=== PATIENT | female | born 1940 | race Caucasian/White ===

== ENCOUNTER 2020-04-27 15:02 | Emergency (ER) | payer OTHER ==
[~2020-04-27] VITALS: Ht 177.8 cm; Wt 86.2 kg
[~2020-04-27 15:02] MED LIST: ASA81 MG; DILANTIN100 MG; GLUCOTROL10 MG; LEVOXYL200 MCG
[2020-04-27] MEDS ORDERED: LIPITOR20 MG (15:16)
== END 2020-04-28 14:42 | disposition home or self-care (01) ==
LOC: ER 15:02
DX: R07.89 Other chest pain (principal); I10 Essential (primary) hypertension

== ENCOUNTER → 2022-01-06 | Emergency (ER) | payer OTHER ==
[~2022-01-06] VITALS: Ht 177.8 cm; Wt 84.8 kg
[~2022-01-06] MED LIST changes: +LIPITOR20 MG; +PLAVIX75 MG PO; +ZESTRIL10 M1 PO
== END | disposition left against medical advice (07) ==
LOC: ER 14:05
DX: R07.89 Other chest pain (principal); I10 Essential (primary) hypertension; E11.65 Type 2 diabetes mellitus with hyperglycemia; Z79.84 Long term (current) use of oral hypoglycemic drugs

== ENCOUNTER 2022-06-20 13:30 | Emergency (ER) | payer OTHER ==
[~2022-06-20] VITALS: Ht 177.8 cm; Wt 77.1 kg
[2022-06-20] MEDS ORDERED: DILANTIN100 MG PO (14:21)
[2022-06-20] MEDS ORDERED: PLAVIX75 MG PO (14:21)
[2022-06-20] MEDS ORDERED: ZESTRIL10 M1 PO (14:22)
[2022-06-20] MEDS ORDERED: JANUMET XR 50-1 EACH PO (14:22)
== END 2022-06-20 19:24 | disposition home or self-care (01) ==
LOC: ER 13:30
DX: R07.89 Other chest pain (principal); I10 Essential (primary) hypertension; R11.0 Nausea

== ENCOUNTER 2024-12-19 20:09 | Emergency (ER) | payer OTHER ==
[~2024-12-19] VITALS: Ht 177.8 cm; Wt 81.2 kg
[~2024-12-19 20:09] MED LIST changes: +DILANTIN100 MG PO; +JANUMET XR 50-1 EACH PO
[2024-12-19] MEDS ORDERED: LEVOTHYROXINE25 MCG (20:27)
[2024-12-19] MEDS ORDERED: 0.9 % SODIUM CHLORIDE 1,000 ML IV STA (21:03)
[2024-12-19] MEDS ORDERED: CLOPIDOGREL BISULFATE 75 MG TABLET PO STA (21:04)
[2024-12-19] MEDS ORDERED: ATORVASTATIN CALCIUM 20 MG TABLET PO STA (21:05)
[2024-12-19] MEDS ORDERED: ASPIRIN 81 MG TAB.CHEW PO STA (21:05)
[2024-12-19] MEDS ORDERED: NITROGLYCERIN 50MG IN NSS (KIT INCLUYE LINEA) IV STA (21:06)
[2024-12-19] MEDS ORDERED: NITROGLYCERIN IN 5 % DEXTROSE 50 MG/250 ML BOTTLE IV ONE (21:26)
[2024-12-19] MEDS ORDERED: CLOPIDOGREL BISULFATE 75 MG TABLET PO ONE (21:26)
[2024-12-19 22:21] LABS: HEMATOCRIT 35.7 % (36.0-45.00); HEMOGLOBIN 12.3 g/dL (12.0-15.00); MEAN CELL VOLUME 94.3 fL (80.00-100.00); MEAN CORPUSCULAR HEMOGLOBIN 32.5 pg (27.00-32.0); MEAN CORPUSCULAR HGB CONC 34.4 g/dl (32.0-36.0); PLATELET COUNT 255 K/uL (150-450); RED BLOOD COUNT 3.79 M/uL (4.00-6.00); RED CELL DISTRIBUTION WIDTH 13.3 % (11.5-14.5)
[2024-12-19 22:40] LABS: ALBUMIN 3.3 gm/dL (3.4-5.0); BILIRUBIN TOTAL 0.22 mg/dL (0.3-1.2); CALCIUM 8.7 mg/dL (8.5-10.1); CREATININE SERUM 1.74 mg/dL (0.55-1.02); GFR 27.81; GLOBULINA 3.3 G/DL (2.4-3.5); POTASSIUM 4.63 mEq/L (3.5-5.1); TOTAL PROTEIN 6.6 gm/dL (6.4-8.2)
[2024-12-19 22:43] LABS: INR 0.95; PARTIAL THROMBOPLASTIN TIME 26.9 SECONDS (22.0-34.0); PROTHROMBIN TIME 10.4 SECONDS (9.0-11.5)
[2024-12-20 00:02] LABS: PH,URINE 5.5 (5.0-8.0); URINE APPEARANCE Clear; URINE BILIRRUBIN Negative (NEGATIVE); URINE BLOOD Small; URINE COLOR Yellow; URINE KETONE Negative (NEGATIVE); URINE LEUKOCYTE Negative; URINE NITRATE Negative; URINE PROTEIN Trace (NEGATIVE); URINE UROBILINOGEN 0.2 E.U./dl
[2024-12-20 00:06] LABS: URINE BACTERIA 25.6 uL (0.0-1933); URINE EPITHELIAL CELLS 3.6 uL (0.0-38.8); URINE RBC 32.6 uL (0.0-20.8); URINE WBC 10.1 uL (0.0-23.2)
[2024-12-20 00:07] LABS: URINE CAST 0.29 uL (0.0-1.40); URINE GLUCOSE 100 MG/DL (NEGATIVE)
[2024-12-20] MEDS ORDERED: ACETAMINOPHEN 500 MG GEL..CAP PO ONE ×2 (02:45→05:57)
== END 2024-12-20 15:01 | disposition home or self-care (01) ==
LOC: ER 20:09
DX: R07.9 Chest pain, unspecified (principal); I10 Essential (primary) hypertension; I20.89 Other forms of angina pectoris